=== PATIENT | male | born 1960 | race Caucasian/White ===

== ENCOUNTER 2020-06-12 08:32 | Outpatient (CLI) | payer BC | END 2020-06-12 08:33 | disposition home or self-care (01) | LOC: TBSIIMAG 08:32 | PROVIDERS: ATTEND Specialist | DX: M13.871 Other specified arthritis, right ankle and foot (principal); S82.231A Displaced oblique fracture of shaft of right tibia, initial encounter for closed fracture; S86.311A Strain of muscle(s) and tendon(s) of peroneal muscle group at lower leg level, right leg, initial encounter; M65.871 Other synovitis and tenosynovitis, right ankle and foot ==

== ENCOUNTER 2021-03-14 23:19 | Inpatient (IN) | payer BC, OTHER, SELFPAY ==
[2021-03-14 23:58] LABS: #Lymphocytes 3.3 thou/uL (1.20-3.40); #Monocytes 0.8 thou/uL (0.11-0.59); #Neutrophils 8.5 thou/uL (1.40-6.50); %Basophils 0.3 % (0.0-1.0); %Eosinophils 0.2 % (0.0-10.0); %Monocytes 6.6 % (0.0-10.0); %Neutrophils 66.8 % (42.0-75.0); Hemoglobin 12.3 g/dL (14.0-18.0); Mean Corpuscular HGB CONC 34.7 g/dL (32.0-36.0); Mean Corpuscular Hemoglobin 35.4 pg (27.0-31.0); Mean Platelet Volume 8.1 fL (7.4-10.4); Platelet Count 247 thou/uL (130-400); RBC Distribution Width 11.9 % (11.5-14.5); Red Blood Cell (RBC) Count 3.47 mill/uL (4.70-6.10); White Blood Cell (WBC) Count 12.7 thou/uL (4.8-10.8)
[2021-03-15 00:18] LABS: ALT (SGPT) 18 U/L (8-55); AST (SGOT) 86 U/L (5-34); Albumin 2.9 g/dL (3.4-4.8); Alkaline Phosphatase 109 U/L (40-110); Anion Gap 16 mmol/L (10-20); BUN (Urea Nitrogen) 25 mg/dL (8.4-25.7); Bilirubin, Total 1.1 mg/dL (0.2-1.2); CK (CPK) 2930 U/L (30-200); Calc. Creatinine Clearance 0 mL/min (70-130); Calcium 7.4 mg/dL (7.8-10.44); Carbon Dioxide 17 mmol/L (23-31); Chloride 104 mmol/L (98-107); Globulin 2.5 g/dL (2.4-3.5); Glucose 92 mg/dL (80-115); Protein, Total 5.4 g/dL (5.8-8.1); Sodium 135 mmol/L (136-145)
[2021-03-15 00:31] LABS: Potassium 2.4 mmol/L (3.5-5.1)
[2021-03-15 00:44] LABS: CKMB 21.9 ng/mL (0-6.6)
[2021-03-15] MEDS ORDERED: Potassium Bicarbonate/Cit Ac 25 MEQ TAB ONE ×2 (01:10)
[2021-03-15] MEDS ORDERED: Potassium Bicarbonate/Cit Ac 25 MEQ TAB PO SCH (01:15)
[2021-03-15] MEDS ORDERED: Dextrose 5% in Water 1,000 ML IV PRN (01:58)
[2021-03-15] MEDS ORDERED: HumaLOG 300 UNITS/3 ML VIAL SC PRN (01:58)
[2021-03-15] MEDS ORDERED: Ondansetron PF 4 MG/2 ML Vial IVP PRN (01:58)
[2021-03-15] MEDS ORDERED: HYDROcodone/Acetaminophen 5/325 mg Tablet PO PRN (01:58)
[2021-03-15] MEDS ORDERED: Dextrose 50% Abboject 50 ML SYRINGE SLOW IVP PRN (01:58)
[2021-03-15] MEDS ORDERED: Senokot S 8.6-50 MG TAB PO PRN (01:58)
[2021-03-15] MEDS ORDERED: Zolpidem Tartrate 5 MG TAB PO PRN (01:58)
[2021-03-15] MEDS ORDERED: Lorazepam 2 MG/ML VIAL SLOW IVP PRN (02:01)
[2021-03-15] MEDS ORDERED: Magnesium 2 GM/50 ML 2 GM in Premix Bag 1 BAG IVPB SCH ×2 (02:15→04:15)
[2021-03-15] MEDS ORDERED: Potassium Chloride 20 MEQ TAB PO SCH ×3 (02:15→15:15)
[2021-03-15 02:31] LABS: #Lymphocytes 2.4 thou/uL (1.20-3.40); %Basophils 0.4 % (0.0-1.0); %Eosinophils 0.3 % (0.0-10.0); %Lymphocytes 21.1 % (21.0-51.0); %Monocytes 8.6 % (0.0-10.0); %Neutrophils 69.6 % (42.0-75.0); Hemoglobin 11.7 g/dL (14.0-18.0); Mean Corpuscular HGB CONC 33.9 g/dL (32.0-36.0); Mean Platelet Volume 7.7 fL (7.4-10.4); Platelet Count 232 thou/uL (130-400); RBC Distribution Width 12.1 % (11.5-14.5); Red Blood Cell (RBC) Count 3.35 mill/uL (4.70-6.10); White Blood Cell (WBC) Count 11.5 thou/uL (4.8-10.8)
[2021-03-15] MEDS ORDERED: HYDROcodone/Acetaminophen 5/325 mg Tablet ONE (02:32)
[2021-03-15] MEDS ORDERED: Magnesium 2 GM/50 ML BAG (IN WATER) ONE ×2 (02:32→04:53)
[2021-03-15 02:47] LABS: SARS-CoV-2 NAA Rapid Test Not Detected (NotDetected)
[2021-03-15 02:54] LABS: Iron 63 ug/dL (65-175); Iron Binding Capacity, Total 104 mcg/dL (261-462)
[2021-03-15 03:14] LABS: Albumin 2.7 g/dL (3.4-4.8); Anion Gap 15 mmol/L (10-20); BUN (Urea Nitrogen) 25 mg/dL (8.4-25.7); BUN/Creatinine Ratio 14.71; CK (CPK) 2520 U/L (30-200); Calc. Creatinine Clearance 0 mL/min (70-130); Calcium 7.4 mg/dL (7.8-10.44); Carbon Dioxide 18 mmol/L (23-31); Chloride 105 mmol/L (98-107); Glucose 104 mg/dL (80-115); Potassium 3.2 mmol/L (3.5-5.1); Sodium 135 mmol/L (136-145)
[2021-03-15] MEDS ORDERED: Potassium Chloride 20 MEQ TAB ONE ×2 (03:17→16:06)
[2021-03-15] MEDS: Potassium Chloride 20 MEQ in Lactated Ringer's 1,000 ML IV SCH ×2 (03:21→14:07)
[2021-03-15 03:40] LABS: Phosphorus 1.8 mg/dL (2.3-4.7)
[2021-03-15] MEDS ORDERED: Potassium Phosphate 30 MMOL in Sodium Chloride 0.9% 250 ML 250 ML IVPB SCH ×2 (04:30→16:00)
[2021-03-15 06:31] LABS: Troponin I 0.021 ng/mL (< 0.028)
[2021-03-15] MEDS: Enoxaparin Sodium 30 MG/0.3 ML SYRINGE SC SCH (10:18)
[2021-03-15] MEDS: Famotidine 20 MG TAB PO SCH (10:18)
[2021-03-15] MEDS ORDERED: Thiamine 100 MG TAB ONE (12:32)
[2021-03-15] MEDS ORDERED: Folic Acid 1 MG TAB ONE (12:32)
[2021-03-15] MEDS: Folic Acid 1 MG TAB PO SCH (12:33)
[2021-03-15] MEDS: Thiamine 100 MG TAB PO SCH (12:33)
[2021-03-15 12:53] LABS: Albumin 2.5 g/dL (3.4-4.8); Anion Gap 19 mmol/L (10-20); BUN (Urea Nitrogen) 24 mg/dL (8.4-25.7); BUN/Creatinine Ratio 15.89; Calc. Creatinine Clearance 79 mL/min (70-130); Calcium 7.2 mg/dL (7.8-10.44); Carbon Dioxide 13 mmol/L (23-31); Chloride 104 mmol/L (98-107); Glucose 64 mg/dL (80-115); Sodium 133 mmol/L (136-145)
[2021-03-15 12:58] LABS: Phosphorus 1.9 mg/dL (2.3-4.7); Potassium 2.8 mmol/L (3.5-5.1)
[2021-03-15] MEDS ORDERED: PHOS-NAK 1 PKT PACK PO SCH (15:15)
[2021-03-15] MEDS ORDERED: Potassium Chloride 20 MEQ/100 ML PREMIX BAG ONE (16:06)
[2021-03-15] MEDS ORDERED: FLU VACC QS2021-22(6MOS UP)/PF 60 MCG/0.5 ML SYRINGE IM ONE (18:15)
[2021-03-15 18:26] VITALS: BMI 27.8
[2021-03-15 21:15] LABS: Albumin 2.5 g/dL (3.4-4.8); Anion Gap 13 mmol/L (10-20); BUN (Urea Nitrogen) 21 mg/dL (8.4-25.7); BUN/Creatinine Ratio 15.79; CK (CPK) 850 U/L (30-200); Calc. Creatinine Clearance 86 mL/min (70-130); Calcium 7.2 mg/dL (7.8-10.44); Carbon Dioxide 20 mmol/L (23-31); Chloride 104 mmol/L (98-107); Glucose 97 mg/dL (80-115); Phosphorus 3.2 mg/dL (2.3-4.7); Potassium 3.7 mmol/L (3.5-5.1); Sodium 133 mmol/L (136-145)
[2021-03-16] MEDS: Potassium Chloride 20 MEQ in Lactated Ringer's 1,000 ML IV SCH ×2 (01:19→11:48)
[2021-03-16] MEDS: Thiamine 100 MG TAB PO SCH (08:42)
[2021-03-16] MEDS: Folic Acid 1 MG TAB PO SCH (08:42)
[2021-03-16] MEDS: Enoxaparin Sodium 30 MG/0.3 ML SYRINGE SC SCH (08:42)
[2021-03-16] MEDS: Famotidine 20 MG TAB PO SCH (08:42)
[2021-03-16 09:25] LABS: ALT (SGPT) 15 U/L (8-55); AST (SGOT) 34 U/L (5-34); Albumin 2.8 g/dL (3.4-4.8); Alkaline Phosphatase 102 U/L (40-110); Anion Gap 16 mmol/L (10-20); BUN (Urea Nitrogen) 20 mg/dL (8.4-25.7); BUN/Creatinine Ratio 16.39; Bilirubin, Total 0.7 mg/dL (0.2-1.2); CK (CPK) 711 U/L (30-200); Calc. Creatinine Clearance 93 mL/min (70-130); Calcium 7.6 mg/dL (7.8-10.44); Carbon Dioxide 14 mmol/L (23-31); Chloride 108 mmol/L (98-107); Globulin 3.1 g/dL (2.4-3.5); Glucose 81 mg/dL (80-115); Magnesium 1.5 mg/dL (1.6-2.6); Phosphorus 3.1 mg/dL (2.3-4.7); Potassium 4.1 mmol/L (3.5-5.1); Protein, Total 5.9 g/dL (5.8-8.1); Sodium 134 mmol/L (136-145)
[2021-03-16 09:50] LABS: Thyroid Stimulating Hormone 7.5112 uIU/mL (0.35-4.94)
[2021-03-16] MEDS ORDERED: Magnesium 2 GM/50 ML 2 GM in Premix Bag 1 BAG IVPB SCH (10:00)
[2021-03-16] MEDS: Lactated Ringer's 1,000 ML IV SCH (12:24)
[2021-03-16 13:34] LABS: Hemoglobin 10.7 g/dL (14.0-18.0); Mean Corpuscular HGB CONC 32.3 g/dL (32.0-36.0); Mean Corpuscular Hemoglobin 34.2 pg (27.0-31.0); Mean Platelet Volume 8.2 fL (7.4-10.4); Platelet Count 234 thou/uL (130-400); RBC Distribution Width 12.2 % (11.5-14.5); Red Blood Cell (RBC) Count 3.12 mill/uL (4.70-6.10); White Blood Cell (WBC) Count 8.1 thou/uL (4.8-10.8)
[2021-03-16] MEDS: Sodium Bicarbonate Tab 325 MG TAB PO SCH ×2 (14:20→21:03)
[2021-03-17] MEDS: Lactated Ringer's 1,000 ML IV SCH ×2 (02:10→09:45)
[2021-03-17 06:14] LABS: #Eosinphils 0.1 thou/uL (0.0-0.7); #Lymphocytes 1.9 thou/uL (1.20-3.40); #Monocytes 0.8 thou/uL (0.11-0.59); %Basophils 0.7 % (0.0-1.0); %Eosinophils 1.7 % (0.0-10.0); %Lymphocytes 28.1 % (21.0-51.0); %Monocytes 11.7 % (0.0-10.0); %Neutrophils 57.8 % (42.0-75.0); Mean Corpuscular HGB CONC 33.1 g/dL (32.0-36.0); Mean Corpuscular Hemoglobin 35.2 pg (27.0-31.0); Mean Platelet Volume 7.6 fL (7.4-10.4); Platelet Count 220 thou/uL (130-400); RBC Distribution Width 12.2 % (11.5-14.5); Red Blood Cell (RBC) Count 2.85 mill/uL (4.70-6.10); White Blood Cell (WBC) Count 6.9 thou/uL (4.8-10.8)
[2021-03-17 06:47] LABS: Anion Gap 10 mmol/L (10-20); BUN (Urea Nitrogen) 18 mg/dL (8.4-25.7); CK (CPK) 338 U/L (30-200); Calc. Creatinine Clearance 94 mL/min (70-130); Calcium 7.6 mg/dL (7.8-10.44); Carbon Dioxide 21 mmol/L (23-31); Chloride 108 mmol/L (98-107); Glucose 94 mg/dL (80-115); Potassium 4.2 mmol/L (3.5-5.1); Sodium 135 mmol/L (136-145)
[2021-03-17 06:52] LABS: Magnesium 1.3 mg/dL (1.6-2.6)
[2021-03-17] MEDS ORDERED: Magnesium 2 GM/50 ML 2 GM in Premix Bag 1 BAG IVPB SCH (09:00)
[2021-03-17] MEDS ORDERED: Magnesium Sulfate 4 GM in Sodium Chloride 0.9% 250 ML 250 ML IVPB SCH (09:00)
[2021-03-17] MEDS: Sodium Bicarbonate Tab 325 MG TAB PO SCH ×3 (09:30→21:52)
[2021-03-17] MEDS ORDERED: Famotidine 20 MG TAB PO SCH ×2 (09:30→21:00)
[2021-03-17] MEDS: Folic Acid 1 MG TAB PO SCH (09:31)
[2021-03-17] MEDS: Thiamine 100 MG TAB PO SCH (09:31)
[2021-03-17] MEDS: Enoxaparin Sodium 30 MG/0.3 ML SYRINGE SC SCH (09:33)
[2021-03-17] MEDS: Famotidine 20 MG TAB PO SCH (09:36)
[2021-03-17] MEDS ORDERED: Enoxaparin Sodium 40 MG/0.4 ML SYRINGE SC SCH (09:45)
[2021-03-17] MEDS ORDERED: ADENOSINE 60 MG/20 ML VIAL ONE (12:21)
[2021-03-17] MEDS: Sodium Chloride 0.9% 1,000 ML IV SCH (17:23)
[2021-03-17] MEDS: Pantoprazole 40 MG VIAL IVP SCH (21:53)
[2021-03-18 06:25] LABS: #Eosinphils 0.1 thou/uL (0.0-0.7); #Lymphocytes 1.6 thou/uL (1.20-3.40); #Monocytes 0.7 thou/uL (0.11-0.59); #Neutrophils 2.7 thou/uL (1.40-6.50); %Basophils 0.7 % (0.0-1.0); %Eosinophils 2.8 % (0.0-10.0); %Lymphocytes 30.7 % (21.0-51.0); %Monocytes 12.8 % (0.0-10.0); %Neutrophils 52.9 % (42.0-75.0); Hemoglobin 9.6 g/dL (14.0-18.0); Mean Corpuscular HGB CONC 33.3 g/dL (32.0-36.0); Mean Corpuscular Hemoglobin 35.6 pg (27.0-31.0); Mean Platelet Volume 7.5 fL (7.4-10.4); Platelet Count 215 thou/uL (130-400); RBC Distribution Width 11.9 % (11.5-14.5); White Blood Cell (WBC) Count 5.1 thou/uL (4.8-10.8)
[2021-03-18 06:48] LABS: Anion Gap 12 mmol/L (10-20); BUN (Urea Nitrogen) 14 mg/dL (8.4-25.7); CK (CPK) 173 U/L (30-200); Calc. Creatinine Clearance 122 mL/min (70-130); Calcium 7.2 mg/dL (7.8-10.44); Carbon Dioxide 17 mmol/L (23-31); Chloride 112 mmol/L (98-107); Glucose 87 mg/dL (80-115); Magnesium 1.5 mg/dL (1.6-2.6); Phosphorus 2.5 mg/dL (2.3-4.7); Potassium 3.6 mmol/L (3.5-5.1); Sodium 137 mmol/L (136-145)
[2021-03-18] MEDS ORDERED: Fentanyl 100 MCG/2 ML VIAL ONE (07:34)
[2021-03-18] MEDS ORDERED: Lidocaine 1% PF 5 ML VIAL ONE (08:14)
[2021-03-18] MEDS ORDERED: PROPOFOL 200 MG/20 ML VIAL ONE (08:14)
[2021-03-18] MEDS ORDERED: ePHEDrine 50 MG/ML VIAL ONE (08:14)
[2021-03-18] MEDS ORDERED: Magnesium Sulfate 4 GM in Sodium Chloride 0.9% 250 ML 250 ML IVPB SCH (08:45)
[2021-03-18] MEDS ORDERED: Enoxaparin Sodium 40 MG/0.4 ML SYRINGE SC SCH (09:00)
[2021-03-18] MEDS: Pantoprazole 40 MG VIAL IVP SCH ×2 (09:53→20:45)
[2021-03-18] MEDS: Sodium Bicarbonate Tab 325 MG TAB PO SCH ×3 (09:53→20:45)
[2021-03-18] MEDS: Thiamine 100 MG TAB PO SCH (09:53)
[2021-03-18] MEDS: Folic Acid 1 MG TAB PO SCH (09:53)
[2021-03-18] MEDS: Lactated Ringer's 1,000 ML IV SCH (14:16)
[2021-03-18] MEDS: Sodium Chloride 0.9% 1,000 ML IV SCH (19:32)
[2021-03-19] MEDS: Lactated Ringer's 1,000 ML IV SCH ×3 (00:12→20:42)
[2021-03-19 07:56] LABS: Albumin 2.1 g/dL (3.4-4.8); Anion Gap 9 mmol/L (10-20); BUN (Urea Nitrogen) 14 mg/dL (8.4-25.7); BUN/Creatinine Ratio 17.07; Calc. Creatinine Clearance 139 mL/min (70-130); Calcium 7.2 mg/dL (7.8-10.44); Carbon Dioxide 19 mmol/L (23-31); Chloride 109 mmol/L (98-107); Glucose 98 mg/dL (80-115); Phosphorus 1.9 mg/dL (2.3-4.7); Potassium 3.5 mmol/L (3.5-5.1); Sodium 133 mmol/L (136-145)
[2021-03-19] MEDS: Sodium Bicarbonate Tab 325 MG TAB PO SCH ×3 (08:45→20:29)
[2021-03-19] MEDS ORDERED: Lactated Ringer's 1,000 ML IV SCH (08:45)
[2021-03-19] MEDS: Folic Acid 1 MG TAB PO SCH (08:45)
[2021-03-19] MEDS: Calcium Carbonate 600 MG + Vit D TAB PO SCH (08:46)
[2021-03-19] MEDS: Thiamine 100 MG TAB PO SCH (08:46)
[2021-03-19] MEDS: Pantoprazole 40 MG VIAL IVP SCH ×2 (08:46→20:28)
[2021-03-19 09:43] LABS: Magnesium 1.5 mg/dL (1.6-2.6)
[2021-03-19] MEDS: PHOS-NAK 1 PKT PACK PO SCH ×3 (11:31→20:28)
[2021-03-20] MEDS: Lactated Ringer's 1,000 ML IV SCH ×3 (05:54→19:54)
[2021-03-20 07:30] LABS: Magnesium 1.2 mg/dL (1.6-2.6)
[2021-03-20 07:34] LABS: Albumin 2.1 g/dL (3.4-4.8); Anion Gap 10 mmol/L (10-20); BUN (Urea Nitrogen) 12 mg/dL (8.4-25.7); BUN/Creatinine Ratio 14.29; Calc. Creatinine Clearance 136 mL/min (70-130); Calcium 7.2 mg/dL (7.8-10.44); Carbon Dioxide 21 mmol/L (23-31); Chloride 108 mmol/L (98-107); Glucose 86 mg/dL (80-115); Phosphorus 2.4 mg/dL (2.3-4.7); Potassium 3.4 mmol/L (3.5-5.1); Sodium 136 mmol/L (136-145)
[2021-03-20] MEDS: Thiamine 100 MG TAB PO SCH (08:57)
[2021-03-20] MEDS: Potassium Bicarbonate/Cit Ac 20 MEQ TAB PO SCH (08:57)
[2021-03-20] MEDS: Calcium Carbonate 600 MG + Vit D TAB PO SCH (08:57)
[2021-03-20] MEDS: Sodium Bicarbonate Tab 325 MG TAB PO SCH ×3 (08:57→19:55)
[2021-03-20] MEDS: Folic Acid 1 MG TAB PO SCH (09:02)
[2021-03-20] MEDS: Cholestyramine/Aspartame 4 gm Packet PO SCH ×2 (10:09→21:37)
[2021-03-20] MEDS: PHOS-NAK 1 PKT PACK PO SCH ×3 (10:10→19:55)
[2021-03-20] MEDS: Pantoprazole 40 MG VIAL IVP SCH ×2 (10:10→21:37)
[2021-03-20] MEDS: Magnesium 2 GM/50 ML 2 GM in Premix Bag 1 BAG IVPB SCH ×3 (10:49→12:51)
[2021-03-20] MEDS ORDERED: Magnesium 2 GM/50 ML 2 GM in Premix Bag 1 BAG IVPB SCH (16:30)
[2021-03-20 17:40] LABS: Magnesium 2.1 mg/dL (1.6-2.6)
[2021-03-20] MEDS: Magnesium Oxide 400 MG TAB PO SCH (19:55)
[2021-03-21] MEDS: Lactated Ringer's 1,000 ML IV SCH ×2 (02:00→09:16)
[2021-03-21 07:48] VITALS: TEMP 98.3
[2021-03-21] MEDS ORDERED: Magnesium Oxide 400 MG TAB PO SCH (09:00)
[2021-03-21] MEDS: Potassium Bicarbonate/Cit Ac 20 MEQ TAB PO SCH (09:06)
[2021-03-21] MEDS: Sodium Bicarbonate Tab 325 MG TAB PO SCH ×2 (09:06→13:58)
[2021-03-21] MEDS: Thiamine 100 MG TAB PO SCH (09:06)
[2021-03-21] MEDS: Calcium Carbonate 600 MG + Vit D TAB PO SCH (09:06)
[2021-03-21] MEDS: Pantoprazole 40 MG VIAL IVP SCH (09:07)
[2021-03-21] MEDS: Cholestyramine/Aspartame 4 gm Packet PO SCH (09:07)
[2021-03-21] MEDS: Folic Acid 1 MG TAB PO SCH (09:07)
[2021-03-21] MEDS: Magnesium Oxide 400 MG TAB PO SCH (09:07)
[2021-03-21 14:43] LABS: Anion Gap 9 mmol/L (10-20); BUN (Urea Nitrogen) 13 mg/dL (8.4-25.7); Calc. Creatinine Clearance 148 mL/min (70-130); Calcium 7.4 mg/dL (7.8-10.44); Carbon Dioxide 23 mmol/L (23-31); Chloride 108 mmol/L (98-107); Glucose 65 mg/dL (80-115); Magnesium 1.4 mg/dL (1.6-2.6); Potassium 4.1 mmol/L (3.5-5.1); Sodium 136 mmol/L (136-145)
[2021-03-21] MEDS ORDERED: Magnesium 2 GM/50 ML 2 GM in Premix Bag 1 BAG IVPB SCH (15:00)
[2021-03-21 15:17] LABS: SARS-CoV-2 PCR by NAA Not Detected (NotDetected)
[2021-03-21 15:57] VITALS: BP 126/74
[2021-03-25 08:41] LABS: Norovirus GI Negative (Negative); Norovirus GII Negative (Negative)
[2021-03-26 18:38] LABS: Routine O & P Final report (.)
== END 2021-03-21 18:00 | DRG 683 ==
LOC: ERS 23:19 → ERHOLD 03-15 01:47 → NEURO 03-15 17:35
PROVIDERS: ADMIT Internal Medicine; ATTEND Internal Medicine
PROC: 0DJ08ZZ Inspection of Upper Intestinal Tract, Via Natural or Artificial Opening Endoscopic (ICD-10-PCS; principal; 2021-03-18)
DX: N17.9 Acute kidney failure, unspecified (principal); M62.82 Rhabdomyolysis; I47.1 Supraventricular tachycardia; K92.1 Melena; E87.2 Acidosis; E86.0 Dehydration; E87.6 Hypokalemia; E83.42 Hypomagnesemia; D53.9 Nutritional anemia, unspecified; Z20.822 Contact with and (suspected) exposure to COVID-19; R19.7 Diarrhea, unspecified; I25.10 Atherosclerotic heart disease of native coronary artery without angina pectoris; E11.9 Type 2 diabetes mellitus without complications; I45.10 Unspecified right bundle-branch block; Z96.641 Presence of right artificial hip joint; R29.6 Repeated falls; I10 Essential (primary) hypertension; S80.02XA Contusion of left knee, initial encounter; S80.01XA Contusion of right knee, initial encounter; S00.83XA Contusion of other part of head, initial encounter; S60.221A Contusion of right hand, initial encounter; S70.02XA Contusion of left hip, initial encounter; F41.9 Anxiety disorder, unspecified; S40.012A Contusion of left shoulder, initial encounter; S40.011A Contusion of right shoulder, initial encounter; W18.30XA Fall on same level, unspecified, initial encounter; E83.39 Other disorders of phosphorus metabolism; E83.51 Hypocalcemia; Z98.84 Bariatric surgery status; Z79.899 Other long term (current) drug therapy
CPT/HCPCS: 36415; 36416; 70450; 70496; 70498; 70551; 76770; 78452; 80048; 80053; 80069; 82274; 82306; 82550; 82553; 82570; 82607; 82746; 83540; 83550; 83630; 83735; 84100; 84439; 84443; 84484; 85025; 85027; 86850; 86900; 86901; 87015; 87045; 87046; 87177; 87206; 87324; 87328; 87329; 87427; 87449; 87798; 90471; 90686; 90732; 93005; 93017; 93306; 93880; 95816; 95819; A9500; C9113; G0008; G0009; J0153; J1650; J2704; J3010; J3475; J3480; J3490; J7050; J7120; U0002; U0003; U0005